=== PATIENT | male | born 1975 | race Caucasian/White ===

== ENCOUNTER 2024-05-29 12:13 | Emergency (ER) | payer MEDICAID ==
[~2024-05-29] VITALS: Ht 180.3 cm; Wt 84.9 kg
[2024-05-29 12:14] VITALS: BP 111/57; PULSE 73; O2SAT 98
[2024-05-29 13:46] VITALS: RESP 16
[2024-05-29] MEDS: ketorolac trometh 30MG/ML vial 30 MG/ML VIAL IM STA (13:46)
[2024-05-29] MEDS ORDERED: MELO-102 PO (15:12)
[2024-05-29] MEDS ORDERED: METH-798 PO (15:12)
[2024-05-29] MEDS ORDERED: ALBU8HFA PO (15:36)
[2024-05-29 15:38] VITALS: TEMP 98
== END 2024-05-29 15:52 | disposition home or self-care (01) ==
LOC: ER 12:15
DX: M54.50 Low back pain, unspecified (principal); J45.909 Unspecified asthma, uncomplicated; G89.29 Other chronic pain; M54.9 Dorsalgia, unspecified; Z88.8 Allergy status to other drugs, medicaments and biological substances; Z79.899 Other long term (current) drug therapy
CPT/HCPCS: 72100; 96372; 99283; J1885

== ENCOUNTER 2024-10-18 12:58 | Emergency (ER) | payer MEDICAID ==
[~2024-10-18] VITALS: Ht 185.4 cm; Wt 86.4 kg
[~2024-10-18 12:58] MED LIST: MELO-102 PO; METH-798 PO
--- NOTE | 2024-10-18 13:38 | RADIOLOGY REPORT ---
AP portable chest CLINICAL INDICATION: CP FINDINGS: Heart size is normal. No infiltrates or effusions. No bony thoracic abnormalities. IMPRESSION: 1. Normal chest x-ray.
[2024-10-18 13:44] LABS: MEAN PLATELET VOLUME 7.5 FL (7.4-10.4); RED CELL DISTRIBUTION WIDTH 13.6 % (11.5-14.5)
--- NOTE | 2024-10-18 13:51 | ELECTROCARDIOGRAPH REPORT ---
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 Bryan Cooper Measurements Intervals [place] Rate: 85 P: 82 PA: 143 QRS: 85 QRSD: 90 T: 58 QT: 385 QTc: 458 Interpretive Statements Sinus bradycardia Probable left atrial enlargement ST elevation suggests acute pericarditis Electronically Signed On 10-18-2024 18:53:[address] Bryan Cooper Please click the below link to view image of tracing.
[2024-10-18 14:05] LABS: CREATININE 0.85 MG/DL (0.60-1.10); PRO BRAIN NATRIURETIC PEPTIDE < 30 PG/ML (0-125); TOTAL CARBON DIOXIDE 29.3 MMOL/L (24-32); eCRCL 121 ML/MIN; eGFR > 90 ML/MIN
[2024-10-18] MEDS ORDERED: PRED10TA23 PO (14:38)
[2024-10-18] MEDS ORDERED: ALBU8HFA INH (14:38)
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
[2024-10-18 14:54] VITALS: BP 111/77; PULSE 59; RESP 17; TEMP 98.3; O2SAT 97
== END 2024-10-18 15:13 | disposition home or self-care (01) ==
LOC: ER 12:59
DX: J44.1 Chronic obstructive pulmonary disease with (acute) exacerbation (principal); Z88.8 Allergy status to other drugs, medicaments and biological substances; Z79.899 Other long term (current) drug therapy
CPT/HCPCS: 36415; 71045; 80048; 83880; 84484; 85025; 93005; 99285; J7030

== ENCOUNTER 2024-11-03 16:28 | Emergency (ER) | payer MEDICAID ==
[~2024-11-03] VITALS: Ht 152.4 cm; Wt 85.2 kg
[~2024-11-03 16:28] MED LIST changes: +ALBU8HFA INH
[2024-11-03 16:33] VITALS: TEMP 98.2
[2024-11-03] MEDS ORDERED: ALBU8HFA INH (16:40)
--- NOTE | 2024-11-03 16:41 | Physician Documentation ---
History of Present Illness ~ Chief Complaint: Asthma Stated Complaint: DIFFICULTY BREATHING Time Seen by MD: 16:33 HPI 49-year-old male presents to the ED with a complaint of shortness a breath and wheezing with a increasing severity. He received a nebulizer treatment in route via EMS in his beginning to feel better already. Denies any chest pain Medication Reconciliation Allergies: Coded Allergies: divalproex sodium (Unverified Allergy, Mild, rash, 10/18/24) theophylline (Unverified Allergy, Unknown, 10/18/24) Scheduled Meloxicam (Meloxicam), 1 TAB PO DAILY Methocarbamol (Methocarbamol), 1-2 TAB PO Q8H Scheduled PRN albuterol inhaler (Pro-Air Inhaler), 2 PUFFS INH Q4HPRN PRN for wheezing albuterol inhaler (Pro-Air Inhaler), 2 PUFFS INH Q4HPRN PRN for wheezing Past Medical History Past Medical History: , COPD Review of Systems All Other Systems at this time: Reviewed and Negative ROS As stated above in the HPI, otherwise all systems are reviewed and negative. Physical Exam Physical Exam General: Alert, Respiratory: coarse lung sounds on the left ,tight sounding Chest: No accessory muscle use. Cardiovascular: Regular rate and rhythm, no murmurs. Neurologic: Oriented x4. Psychiatric: Normal mood and affect. Skin: Normal color, warm and dry. No edema, no ecchymosis. Progress Results/Orders Results/Orders Orders - EMMANUEL ANDRES [employer] SAWYER Chest,Single View (11/03/24 16:49) Completed Orders - EMMANUEL ANDRES [employer]WYER Methylprednisolone Sod Succ (Solumedrol (11/03/24 16:35) Chest,Single View (11/03/24 16:49) Vital Signs 11/03/24 11/03/24 16:33 17:41 Temp 98.2 Pulse 68 78 Resp 18 18 B/P (MAP) 106/88 140/87 Pulse Ox 98 98 O2 Flow Rate 0 Medical Decision Making Findings Patient received corticosteroids and an additional nebulizer treatment while in the ED. reported overall improved symptoms no longer short of breath in his taking much deeper respirations Differential Dx:Considerations: Include: anxiety, asthma, bronchitis, cardiogenic shock, CHF, COPD, dysrhythmia, hypertension, accelerated, hypertension, essential, hypertension, malignant, hyperventilation, hyponatremia, myocardial infarction, panic attack, pneumonia, pneumonitis, pneumothorax, PSVT, pulmonary embolism, respiratory distress, respiratory failure, sinusitis, upper resp. infection, other Departure Disposition: HOME / SELF CARE / HOMELESS Impression: Primary Impression: Acute asthma Discharge Instructions: Asthma Attack Prevention, Adult Referrals: NO PRIMARY CARE PROVIDER (PCP) Prescriptions albuterol inhaler (Pro-Air Inhaler) 8.5 Gm Inhaler 2 PUFFS INH Q4HPRN PRN for wheezing for 30 Days, #18 GM Prov: EMMANUEL ANDRES NP 11/03/24 Education Educated: Patient Educated regarding: diagnosis Signature Scribe Signature: f Attestation: Scribed for Emmanuel Andres Youth Associate by Emmanuel Andres - LUCY . 11/04/24 08:27 EMMANUEL ANDRES NP Nov 03, 2024 16:41
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
[2024-11-03 17:41] VITALS: BP 140/87; PULSE 78; RESP 18; O2SAT 98
== END 2024-11-03 17:44 | disposition home or self-care (01) ==
LOC: ER 16:28
DX: J44.9 Chronic obstructive pulmonary disease, unspecified (principal); Z88.8 Allergy status to other drugs, medicaments and biological substances
CPT/HCPCS: 71045; 96374; 99283; J2919